=== PATIENT | female | born 1995 | race African-American/Black ===

== ENCOUNTER 2019-09-06 21:48 | Observation (INO) | payer BC ==
[2019-09-07] MEDS ORDERED: Sodium Chloride 0.9% 1,000 ML IV SCH (00:45)
[2019-09-07 00:55] VITALS: BMI 31.7
[2019-09-07] MEDS ORDERED: Acetaminophen 325 MG TAB PO PRN (01:18)
[2019-09-07] MEDS ORDERED: Senokot S 8.6-50 MG TAB PO PRN (01:18)
[2019-09-07] MEDS ORDERED: Bacteriostatic Water 30 ML VIAL FS PRN (01:29)
[2019-09-07] MEDS: Sodium Chloride 0.9% 1,000 ML IV SCH ×3 (01:34→21:38)
--- NOTE | 2019-09-07 01:52 | HP ---
CHIEF COMPLAINT: Shortness of breath. HISTORY OF PRESENT ILLNESS: Patient is a very pleasant 23-year-old female with a history of asthma, presents to the hospital with complaints of shortness of breath going on for the past couple of days. She states that she has also been having some cough with yellow phlegm and also some chills. Denies any fevers or any sick contacts. She states that she is very compliant with her Dulera and her as needed inhaler that she uses at home. PAST MEDICAL HISTORY: She has a history of asthma, has never been intubated. PAST SURGICAL HISTORY: She denies any surgical history. FAMILY HISTORY: She denies her parents are pretty. SOCIAL HISTORY: She denies any alcohol use, smoking history, or any drug use. She is a full code. REVIEW OF SYSTEMS: All negative, except for the ones mentioned above in the HPI. ALLERGIES: SHE HAS NO KNOWN DRUG ALLERGIES. MEDICATIONS: 1. She is on Dulera. 2. Zyrtec. 3. Albuterol inhaler. PHYSICAL EXAMINATION: VITAL SIGNS: As of the following; temperature 98.6, heart rate of 148, 20, 95% on room air, and 142/83. GENERAL: She is awake, alert, and oriented x3. Does not appear in any respiratory distress. CV: S1, S2 present. She has sinus tach. LUNGS: She has significant expiratory wheezing and rhonchi all over her lung. ABDOMEN: Soft and nontender. Bowel sounds are present x2. EXTREMITIES: She has no edema. Pedal pulses present x2 NEUROVASCULAR: No focal deficits noted. SKIN: No cuts, lesions, or bruises noted. LABORATORY RESULTS: WBCs of 8.1, hemoglobin of 11.7, hematocrit of 38.9, and platelets of 234. Chemistry; sodium of 142, potassium 3.5, BUN of 5, and creatinine 0.79. She did have a chest x-ray, which did not show any acute abnormalities. ASSESSMENT AND PLAN: Patient is a very pleasant 23-year-old female who presents to the hospital with shortness of breath. 1. Asthma exacerbation. She received magnesium. She received DuoNeb and steroids in the ER. She continues to still have significant amount of wheezing. We will continue the steroids twice a day IV. We will continue DuoNebs. I do not think at this point she requires any antibiotics. We will continue to monitor her. 2. Sinus tach. Continue some IV hydration. She is also receiving significant amount of albuterol. Her sinus tach is most likely secondary to her underlying lung disease. 3. Deep venous thrombosis prophylaxis. We will put the patient on subcu heparin. Job ID: [id number]
[2019-09-07] MEDS ORDERED: methylPREDNISolone Sod Succ/PF 125 MG/2 ML VIAL IVP SCH (06:00)
[2019-09-07 06:09] LABS: #Eosinphils 0.1 thou/uL (0.0-0.7); #Lymphocytes 0.3 thou/uL (1.20-3.40); #Monocytes 0.1 thou/uL (0.11-0.59); #Neutrophils 5.4 thou/uL (1.40-6.50); %Basophils 0.4 % (0.0-1.0); %Eosinophils 1.7 % (0.0-10.0); %Lymphocytes 5.5 % (21.0-51.0); %Monocytes 1.5 % (0.0-10.0); Hemoglobin 11.1 g/dL (12.0-16.0); Mean Corpuscular HGB CONC 32.8 g/dL (32.0-36.0); Mean Corpuscular Hemoglobin 25.5 pg (27.0-31.0); Mean Corpuscular Volume 77.7 fL (78.0-98.0); Platelet Count 240 thou/uL (130-400); RBC Distribution Width 12.3 % (11.5-14.5); Red Blood Cell (RBC) Count 4.34 mill/uL (4.20-5.40); White Blood Cell (WBC) Count 5.9 thou/uL (4.8-10.8)
[2019-09-07 06:34] LABS: Anion Gap 12 mmol/L (10-20); BUN (Urea Nitrogen) 5 mg/dL (7.0-18.7); Calc. Creatinine Clearance 144 mL/min (70-130); Calcium 9.1 mg/dL (7.8-10.44); Carbon Dioxide 16 mmol/L (22-29); Chloride 112 mmol/L (98-107); Estimated GFR-MDRD Greater than 90; Glucose 152 mg/dL (70-105); Potassium 4.4 mmol/L (3.5-5.1); Sodium 136 mmol/L (136-145)
[2019-09-07] MEDS: Famotidine 20 MG TAB PO SCH ×2 (07:48→20:32)
[2019-09-07] MEDS: methylPREDNISolone Sod Succ 40 MG VIAL IVP SCH ×2 (07:49→20:32)
[2019-09-07] MEDS: Enoxaparin Sodium 40 MG/0.4 ML SYRINGE SC SCH (07:49)
[2019-09-07] MEDS ORDERED: guaiFENesin/Codeine Phosphate 200 mg/20 mg 10 ml UD Cup PO SCH (10:15)
--- NOTE | 2019-09-07 23:23 | PDOC.EVN ---
Event Note - Event Note Event Note: inherited patient this morning. On encounter at noon, lying comfortably in bed and has no complaints. Denies shortness of breath. On exam, diffuse inspiratory and expiratory wheezing however not tachypnic and breathing and saturating well on RA. Will continue current management.
[2019-09-08] MEDS: methylPREDNISolone Sod Succ 40 MG VIAL IVP SCH (09:23)
[2019-09-08] MEDS: Famotidine 20 MG TAB PO SCH (09:23)
[2019-09-08] MEDS: Enoxaparin Sodium 40 MG/0.4 ML SYRINGE SC SCH (09:23)
[2019-09-08] MEDS: Sodium Chloride 0.9% 1,000 ML IV SCH (09:24)
[2019-09-08 15:27] VITALS: BP 135/92; TEMP 99.1
--- NOTE | 2019-09-09 11:31 | DIS ---
DATE OF ADMISSION: 09/07/2019 DATE OF DISCHARGE: 09/08/2019 HOSPITAL COURSE: Ms. Willis is a 23-year-old female with medical history of asthma, who presented with asthma exacerbation. Per the patient, she was recently next to a sick contact, after which she started developing increased cough and shortness of breath, so she presented to the ED. In the ED, she was found to be severely wheezing and hypoxic. She was started on IV steroids as well as breathing treatments. She improved promptly and on the day following admission requested to go home. Prior to discharge, the patient's expiratory flow rate was determined to be close to baseline based on her weight, age, and previous performance. She was hemodynamically stable, breathing well and saturating in the high 90s on room air. PHYSICAL EXAMINATION: GENERAL: She was in no apparent distress. Alert and oriented x3. CARDIAC: She was mildly tachycardic, regular rhythm. No JVD, gallops. LUNGS: Clear to auscultation bilaterally with mild inspiratory and expiratory wheezing. Mildly reduced breath sounds bilaterally. ABDOMEN: Nondistended, nontender. Normal bowel sounds. ASSESSMENT AND PLAN: Ms. Willis is a 23-year-old female, who presented with asthma exacerbation due to a viral pneumonia. 1. Asthma exacerbation. a. The patient promptly responded to steroids as well as breathing treatments. b. The patient's respiratory performance was close to baseline prior to discharge. c. The patient's inhalation technique was reviewed prior to discharge. d. Medications were renewed and she was continued on steroids orally for a total duration of a week. e. The patient was educated regarding indications to return to the ED for further treatment. Job ID: [id number]
== END 2019-09-08 15:31 | disposition home or self-care (01) ==
LOC: T4-A 09-07 00:22
PROVIDERS: ADMIT Internal Medicine; ATTEND Internal Medicine
DX: J12.9 Viral pneumonia, unspecified (principal); J45.901 Unspecified asthma with (acute) exacerbation; R00.0 Tachycardia, unspecified; Z79.899 Other long term (current) drug therapy
CPT/HCPCS: 36415; 80048; 85025; 94640; 96372; 96374; 96376; G0378; J1650; J2920; J7620